=== PATIENT | male | born 1955 | race Caucasian/White ===

== ENCOUNTER 2017-05-22 06:38 | Day surgery (SDC) | payer BC ==
[~2017-05-22 06:38] MED LIST: Lactated Ringers 1,000 ML IV SCH
[2017-05-22] MEDS ORDERED: Propofol 200 MG/20 ML SDV ONE (08:15)
[2017-05-22] MEDS ORDERED: fentaNYL 100 MCG/2 ML SDV ONE (08:15)
[2017-05-22 09:52] VITALS: BP 97/51
--- NOTE | 2017-05-23 08:31 | OR ---
PREOPERATIVE DIAGNOSES: History of polyps and family history of colon cancer- father. POSTOPERATIVE DIAGNOSIS: Colonic polyp at 60 cm, removed. PROCEDURE PROPOSED: Total flexible colonoscopy. PROCEDURE DONE: Total flexible colonoscopy with a polypectomy x1. INDICATION: This is a 61-year-old gentleman who comes in for colonic surveillance due to a history of polyps and also family history of colon cancer in the father. He states his last examination was 7 years ago. TECHNIQUE: The patient was in the left lateral decubitus position. He was sedated per [employer] with propofol. The flexible video colonoscope was then passed transanally and under visualization was advanced to the cecum. Examination revealed a normal ascending, transverse colon, and the descending colon, at about 60 cm there was adenomatous polyp removed by hot snare technique and retrieved with suction. The remainder of the descending, sigmoid, and rectal colon were unremarkable. There was no evidence of diverticulosis or colitis. The scope was then withdrawn. The patient tolerated the procedure well. IMPRESSION: 1. Colonic polyps x1, removed. 2. Family history of colon cancer-father. PLAN: He should continue with colonic surveillance every 5 years hereafter due to his increased risk. SCM: 05/22/2017 09:37:03 MODL: 05/22/2017 13:01:53 /[id number]
--- NOTE | 2017-06-05 11:50 | LETTER ---
06/05/2017 Romulo Ankit Bradley RE: ROMULO CALDERÓN BRADLEY : 1955 Dear Mr. Mariscal, The polyp removed from your colon was a tubular adenoma, which is considered a precancerous polyp. This polyp did not have any worrisome changes within it, but because of this finding, I feel that you should have your colon evaluated every 5 years to make sure you do not form any new polyps. If you have any further questions regarding this, feel free to call. Respectfully,
== END 2017-05-22 10:55 | disposition home or self-care (01) ==
LOC: VM.SDS 06:38
PROVIDERS: ATTEND Surgery
DX: Z12.11 Encounter for screening for malignant neoplasm of colon (principal); D12.6 Benign neoplasm of colon, unspecified; Z86.010 Personal history of colon polyps; Z80.0 Family history of malignant neoplasm of digestive organs; Z79.899 Other long term (current) drug therapy; Z90.49 Acquired absence of other specified parts of digestive tract; Z98.890 Other specified postprocedural states
CPT/HCPCS: 45385; J2704; J3010; J7120